=== PATIENT | female | born 1985 | race Caucasian/White ===

== ENCOUNTER 2017-01-06 01:48 | Emergency (ER) | payer OTHER ==
--- NOTE | 2017-01-06 02:07 | PDOC ---
History of Present Illness - General History Source: Patient Exam Limitations: No Limitations - History of Present Illness Initial Comments: 01/06/17 02:17 The patient is a 31 year old female with no significant PMH who presents to the emergency department with vomiting beginning approximately yesterday morning. The patient reports tolerating soup for lunch at noon yesterday but continuously vomiting since. The patient reports sick contacts at work but denies sick contacts at home. The patient is currently menstruating. The patient denies chest pain, shortness of breath, headache and dizziness. Denies fever, chills, diarrhea and constipation. Denies dysuria, frequency, urgency and hematuria. Allergies: NKDA Past surgical history: None reported. Social history: No reported cigarette, alcohol, or drug use. PCP: Dr. Ortiz <Naga Nascimento - Last Filed: 01/06/17 02:23> - General History Source: Patient <Jarocho Hill - Last Filed: 01/06/17 04:12> - General Stated Complaint: VOMITING,WEAKNESS Time Seen by Provider: 01/06/17 02:04 Past History <Naga Nascimento - Last Filed: 01/06/17 02:23> - Past Medical History Anemia: No Asthma: No Cancer: No Cardiac Disorders: No - Surgical History Abdominal Surgery: No Appendectomy: No Cardiac Surgery: No Cholecystectomy: No - Immunization History Immunization Up to Date: Yes - Suicide/Smoking/Psychosocial Hx Smoking Status: No Smoking History: Never smoked Have you smoked in the past 12 months: No Number of Cigarettes Smoked Daily: 0 Hx Alcohol Use: No Drug/Substance Use Hx: No Substance Use Type: Alcohol <Jarocho Hill - Last Filed: 01/06/17 04:12> - Past Medical History Allergies/Adverse Reactions: Allergies Allergy/AdvReac Type Severity Reaction Status Date / Time walnut Allergy Verified 03/10/15 21:44 Home Medications: Ambulatory Orders Ondansetron [Zofran *Odt*] 4 mg SL TID #30 od.tablet 01/06/17 Review of Systems - Review of Systems Able to Perform ROS?: Yes Comments:: 01/06/17 02:18 CONSTITUTIONAL: Absent: fever, chills, diaphoresis, generalized weakness, malaise, loss of appetite HEENT: Absent: rhinorrhea, nasal congestion, throat pain, throat swelling, difficulty swallowing, mouth swelling, ear pain, eye pain, visual Changes CARDIOVASCULAR: Absent: chest pain, syncope, palpitations, irregular heart rate, lightheadedness , peripheral edema RESPIRATORY: Absent: cough, shortness of breath, dyspnea with exertion, orthopnea, wheezing, stridor, hemoptysis GASTROINTESTINAL: (+) Vomiting. Absent: abdominal pain, abdominal distension, diarrhea, constipation, melena, hematochezia GENITOURINARY: Absent: dysuria, frequency, urgency, hesitancy, hematuria, flank pain, genital pain MUSCULOSKELETAL: Absent: myalgia, arthralgia, joint swelling SKIN: Absent: rash, itching, pallor HEMATOLOGIC/IMMUNOLOGIC: Absent: easy bleeding, easy bruising, lymphadenopathy, frequent infections ENDOCRINE: Absent: unexplained weight gain, unexplained weight loss, heat intolerance, cold intolerance NEUROLOGIC: Absent: headache, focal weakness or paresthesias, dizziness, unsteady gait, seizure, mental status changes, bladder or bowel incontinence PSYCHIATRIC: Absent: anxiety, depression, suicidal or homicidal ideation, hallucinations. <Naga Nascimento - Last Filed: 01/06/17 02:23> *Physical Exam - Vital Signs Last Vital Signs Temp Pulse Resp BP Pulse Ox 98.1 F 72 18 114/70 99 01/06/17 02:07 01/06/17 02:07 01/06/17 02:07 01/06/17 02:07 01/06/17 02:07 - Physical Exam Comments: 01/06/17 02:18 GENERAL: Well developed, well nourished. Awake and alert. No acute distress. HEENT: Normocephalic, atraumatic. PERRLA, EOMI. No conjunctival pallor. Sclera are non- icteric. Moist mucous membranes. Oropharynx is clear. NECK: Supple. Full ROM. No JVD. Carotid pulses 2+ and symmetric, without bruits. No thyromegaly. No lymphadenopathy. CARDIOVASCULAR: Regular rate and rhythm. No murmurs, rubs, or gallops. Distal pulses are 2+ and symmetric. PULMONARY: No evidence of respiratory distress. Lungs clear to auscultation bilaterally. No wheezing, rales or rhonchi. ABDOMINAL: Soft. Non-tender. Non-distended. No rebound or guarding. No organomegaly. Normoactive bowel sounds. MUSCULOSKELETAL Normal range of motion at all joints. No bony deformities or tenderness. No CVA tenderness. EXTREMITIES: No cyanosis. No clubbing. No edema. No calf tenderness. SKIN: Warm and dry. Normal capillary refill. No rashes. No jaundice. NEUROLOGICAL: Alert, awake, appropriate. Cranial nerves 2-12 intact. No deficits to light touch and temperature in face, upper extremities and lower extremities. No motor deficits in the in face, upper extremities and lower extremities. Normoreflexic in the upper and lower extremities. Normal speech. Toes are downgoing bilaterally. Gait is normal without ataxia. PSYCHIATRIC: Cooperative. Good eye contact. Appropriate mood and affect. <Naga Nascimento - Last Filed: 01/06/17 02:23> ED Treatment Course - LABORATORY CBC & Chemistry Diagram: 01/06/17 02:22 01/06/17 02:22 <Jarocho Hill - Last Filed: 01/06/17 04:12> Medical Decision Making - Medical Decision Making 01/06/17 03:44 Dr. Hill: The scribe's documentation has been prepared under my direction and personally reviewed by me in its entirery. I confirm that the note above accurately reflects all work, treatment, procedures, and medical decision making performed by me. 01/06/17 03:44 Pt tolerated po fluids after IVF hydration. Pt will be discharged Rx Zofran 4mg PO <Jarocho Hill - Last Filed: 01/06/17 04:12> *DC/Admit/Observation/Transfer - Attestations Scribe Attestion: 01/06/17 02:18 Documentation prepared by Naga Nascimento, acting as medical coding instructor for Jarocho Hill DO. <Naga Nascimento - Last Filed: 01/06/17 02:23> - Discharge Dispostion Admit: No <Jarocho Hill - Last Filed: 01/06/17 04:12> Diagnosis at time of Disposition: Vomiting - Discharge Dispostion Disposition: HOME Condition at time of disposition: Stable - Prescriptions Prescriptions: Ondansetron [Zofran *Odt*] 4 mg SL TID #30 od.tablet - Referrals Referrals: Ramos Ortiz MD [Primary Care Provider] - - Patient Instructions Printed Discharge Instructions: DI for Vomiting -- Adult - Post Discharge Activity Forms/Work/School Notes: Back to Work
[2017-01-06] MEDS ORDERED: ONDANSETRON 4 MG/2 ML VIAL IVPUSH STA (02:08)
[2017-01-06] MEDS ORDERED: SODIUM CHLORIDE 1,000 ML IV STA (02:08)
[2017-01-06 02:09] VITALS: BMI 21.9
[2017-01-06] MEDS ORDERED: ONDANSETRON 4 MG/2 ML VIAL ONE (02:16)
[2017-01-06 02:31] LABS: URINE APPEARANCE SLCLOUDY; URINE BILIRUBIN NEGATIVE (NEGATIVE); URINE BLOOD 3+ (NEGATIVE); URINE COLOR YELLOW; URINE GLUCOSE (UA) NEGATIVE (NEGATIVE); URINE KETONE 1+ (NEGATIVE); URINE NITRITE NEGATIVE (NEGATIVE); URINE UROBILINOGEN NEGATIVE mg/dL (0.2-1.0)
[2017-01-06 02:37] LABS: BASOPHIL 0.6 % (0-2.0); MCH 30.3 pg (25.7-33.7); MCHC 33.1 g/dl (32.0-36.0); MEAN CELL VOLUME 91.6 fl (80-96); NEUTROPHILS 86.7 % (42.8-82.8); PLATELET COUNT 295 K/MM3 (134-434); RDW 13.5 % (11.6-15.6); WHITE BLOOD COUNT 10.2 K/mm3 (4.0-10.0)
[2017-01-06 02:49] LABS: URINE PROTEIN 1+ (NEGATIVE)
[2017-01-06 02:52] LABS: URINE BACTERIA RARE /hpf (NONE SEEN); URINE HYALINE CAST 1 /lpf; URINE MUCUS RARE; URINE RBC 83 /hpf (0-3)
[2017-01-06 03:06] LABS: ALK PHOS 59 U/L (45-117); ANION GAP 8 (8-16); BILIRUBIN,TOTAL 0.5 mg/dL (0.2-1.0); CALCIUM 9.1 mg/dL (8.5-10.1); CO2 25 mmol/L (21-32); CREATININE 0.7 mg/dL (0.55-1.02); GLUCOSE,RANDOM 127 mg/dL (74-106); MAGNESIUM 2.2 mg/dL (1.8-2.4); SGOT/AST 14 U/L (15-37); SGPT/ALT 22 U/L (12-78); TOT PROT 8.2 g/dl (6.4-8.2)
[2017-01-06 04:21] VITALS: BP 99/65; PULSE 67; TEMP 98.2
[2017-01-06 09:24] LABS: URINE LEUK ESTERASE Negative (NEGATIVE)
== END 2017-01-06 04:22 | disposition home or self-care (01) ==
LOC: JER 01:48
PROC: 3E033GC Introduction of Other Therapeutic Substance into Peripheral Vein, Percutaneous Approach (ICD-10-PCS; principal; 2017-01-06)
PROC: 3E0337Z Introduction of Electrolytic and Water Balance Substance into Peripheral Vein, Percutaneous Approach (ICD-10-PCS; 2017-01-06)
DX: R11.10 Vomiting, unspecified (principal)
CPT/HCPCS: 36415; 80053; 81003; 81015; 83690; 83735; 84703; 85025; 87086; 96361; 96374; 99283-25